=== PATIENT | female | born 2000 | race Caucasian/White ===

== ENCOUNTER 2021-09-09 13:46 | Emergency (ER) | payer BC ==
[2021-09-09 13:51] VITALS: BP 140/99
[2021-09-09] MEDS ORDERED: LIDOCAINE 1% 2 ML VIAL SUBQ STA (14:02)
[2021-09-09] MEDS ORDERED: BACITRACIN ZINC OINT 1 PACKET TOP STA (14:21)
--- NOTE | 2021-09-09 14:27 | ED Physician Documentation ---
History of Present Illness - Stated complaint Stated Complaint: L WRIST LAC - Chief complaint Chief Complaint: Laceration - History obtained from History obtained from: Patient - History of Present Illness Timing: Today Pain level max: 3 Pain level now: 2 - Additonal information Additional information: Patient is a 21-year-old female who presents to the emergency department the laceration to the left wrist. This occurred while she was attempting to whittle wood. Tetanus is up-to-date. She is right-handed. No active bleeding Review of Systems Constitutional: denies: Fever : denies: Now [facility] PAST MEDICAL HISTORY - Past Medical History Past Medical History: No - Past Surgical History Past Surgical History: No - Allergies Allergies/Adverse Reactions: Allergies Allergy/AdvReac Type Severity Reaction Status Date / Time No Known Drug Allergies Allergy Verified 09/09/21 13:48 - Living Situation Living Situation: reports: With family Living Arrangement: reports: At home - Social History Does the pt have substance abuse?: No - Family History Family history: reports: Non contributory - Immunizations Immunizations are current?: Yes Immunizations: TDAP current <10years PD ED PE NORMAL - Vitals Vital signs reviewed: Yes - General General: Alert and oriented X 3, No acute distress - HEENT HEENT: Moist mucous membranes - Derm Derm: Warm and dry - Extremities Extremities: Other (2 cm laceration to the volar aspect of the left wrist. Neurovascularly intact) PD ED PE EXPANDED - Extremities CIERRA UE/Hands Visual: 1 - laceration (2 cm laceration to the volar aspect of the left wrist. Rachael rovascularly intact) Results - Vitals Vitals: Vital Signs - 24 hr 09/09/21 13:49 Temperature 36.5 C Heart Rate 110 H Respiratory 16 Rate Blood Pressure 140/99 H O2 Saturation 100 Oxygen O2 Source Room air Procedures - Laceration (location) L wrist Length in cm: 2 Wound type: Linear, Into subcut fat Neurovascular status: Sensory intact, Motor intact, Vascular intact Tendon involvement: Tendon intact Anesthesia: Lidocaine 1% Wound preparation: Irrigated copiously NS Skin layer closure: Nylon, Interrupted, Sutures - enter # (3) Other: Patient tolerated well, No complications, Neurovascular intact, Tetanus UTD PD MEDICAL DECISION MAKING - ED course Complexity details: considered differential, d/w patient ED course: Laceration repaired. Tolerated well. Warnings of infection and instructions on wound care given at bedside. Also counseled on how to minimize scarring. Patient counseled regarding signs and symptoms for which I believe and urgent re-evaluation would be necessary. Patient with good understanding of and agreement to plan and is comfortable going home at this time This document was made in part using voice recognition software. While efforts are made to proofread this document, sound alike and grammatical errors may occur. Departure - Departure Disposition: 01 Home, Self Care Clinical Impression: Laceration of left wrist Qualifiers: Encounter type: initial encounter Qualified Code(s): S61.512A - Laceration without foreign body of left wrist, initial encounter Condition: Good Instructions: ED Laceration Ext Sutr Stap Tape Follow-Up: your,doctor in 10 days for suture removal [Other] Comments: Please follow-up with your doctor in approximately 10 days for suture removal. Return if you notice redness, swelling or drainage from the wound. Keep the wound clean. Discharge Date/Time: 09/09/21 14:40
== END 2021-09-09 14:40 | disposition home or self-care (01) ==
LOC: ED 13:46
DX: S61.512A Laceration without foreign body of left wrist, initial encounter (principal); W45.8XXA Other foreign body or object entering through skin, initial encounter; Y93.89 Activity, other specified
CPT/HCPCS: 12001; 99281; A9270